=== PATIENT | female | born 1975 | race Asian ===

== ENCOUNTER 2017-12-01 02:01 | Emergency (ER) | payer BC ==
[2017-12-01] MEDS: HYDROCODONE/APAP (5/325) TAB PO (04:16)
== END 2017-12-01 05:12 | disposition home or self-care (01) ==
LOC: FTE 02:01
DX: S66.911A Strain of unspecified muscle, fascia and tendon at wrist and hand level, right hand, initial encounter (principal); S16.1XXA Strain of muscle, fascia and tendon at neck level, initial encounter; V49.40XA Driver injured in collision with unspecified motor vehicles in traffic accident, initial encounter
CPT/HCPCS: 29125; 99284-25